=== PATIENT | female | born 1970 | race Caucasian/White ===

== ENCOUNTER 2018-02-07 20:53 | Emergency (ER) | payer OTHER, SELFPAY ==
[2018-02-07 21:04] VITALS: BP 149/93; PULSE 130; RESP 26; TEMP 37.2; O2SAT 99
--- NOTE | 2018-02-07 21:04 | DI.RAD.S_ITS ---
PROCEDURE: XR CHEST 1V INDICATIONS: Chest pain. TECHNIQUE: One view of the chest was acquired. COMPARISON: None. FINDINGS: Surgical changes and devices: None. Lungs and pleura: No pleural effusions or pneumothorax. Lungs are hypoinflated. There is mild prominence of the pulmonary arteries. There are mild perihilar pulmonary opacities favored to represent atelectasis. Mediastinum: Mediastinal contours appear normal. Heart size is normal. Bones and chest wall: No suspicious bony lesions. Overlying soft tissues appear unremarkable. IMPRESSION: Pulmonary hypoinflation with mild perihilar atelectasis. Dictated by: Mariano Thrasher M.D. on 02/08/2018 at 8:16 Approved by: Mariano Thrasher M.D. on 02/08/2018 at 8:19
--- NOTE | 2018-02-07 21:09 | ED.CHESTPAIN ---
HPI - Chest Pain General Chief Complaint: Chest Pain Stated Complaint: Chest Pain Time Seen by Provider: 02/07/18 21:08 Source: patient Mode of arrival: ambulatory Limitations: no limitations History of Present Illness HPI narrative: 47-year-old female here for evaluation of chest pressure radiating down her left arm. She states that it started approximately 1 hr prior to arrival here in the ER. [place] started to not feel very well. She told her that she felt like he needed to go home. They were driving home she decided that she needed to come to the emergency department for evaluation. No prior history of cardiac disease. Does not get worse with palpation or movement or breathing. She does have a history of reflux and is on medicines for this. No family history of early cardiac . Related Data Allergies Allergy/AdvReac Type Severity Reaction Status Date / Time Penicillins Allergy Verified 02/07/18 22:02 Review of Systems Constitutional Denies fever(s) Cardiovascular Reports chest pain, Denies diaphoresis, Denies rapid heart rate, Denies leg edema, Denies lightheadedness, Reports radiating jaw, neck or arm pain, Denies palpitations and Denies dyspnea Respiratory Denies pain on inspiration and Denies dyspnea Gastrointestinal Gastrointestinal: Denies abdominal pain, Denies change in bowel habits, Denies constipation and Reports nausea Musculoskeletal Denies myalgias and Denies arthralgias Integumentary/Breasts Denies lesions and Denies rash Neurologic Denies confusion Psychiatric Denies confusion Endocrine Denies palpitations Hematologic/Lymphatic Denies easy bleeding and Denies easy bruising PFSH Medical History Gastroesophageal reflux disease (Acute) Surgical History No pertinent past surgical history (Acute) Social History marital status: lives independently: Yes Smoking Status: Never smoker Exam Initial Vital Signs Initial Vital Signs: Vital Signs Temperature 99.0 F 02/07/18 21:04 Pulse Rate 130 H 02/07/18 21:04 Respiratory Rate 26 H 02/07/18 21:04 Blood Pressure 149/93 H 02/07/18 21:04 Pulse Oximetry 99 02/07/18 21:04 Const General: healthy appearing, No comfortable (Uncomfortable), well developed and well groomed Orientation: alert, awake and oriented x3 HENMT Head: normal to inspection and normocephalic Resp Effort & Inspection: normal respiratory effort Auscultation: clear to auscultation bilaterally Cardio Rate: tachycardic Rhythm: regular rhythm Heart Sounds: no murmurs Pulses: radial pulses present GI Inspection: non-distended Palpation: soft, No firm and No tender Skin Lesions: no lesions Rashes: no rashes Neuro General: alert, awake and oriented x3 Cognition: normal cognition Speech: speech normal Motor: muscle tone normal throughout Sensory Exam: no sensory deficits noted Extrem General: normal to inspection and capillary refill normal Psych Appearance: grossly normal and well kempt Scores HEART Score Heart Score history: Slightly Suspicious Heart Score EKG: Non-Specific repolarization disturbance Heart Score Age: 45-64 years old Heart Score risk factors: 1-2 risk factors Heart Score troponin: < or = to normal limit Heart Score Total: 3 Course Orders Ordered: ED Orders 02/07/18 21:04 XR chest 1V Stat EKG-12 Lead Stat 02/07/18 21:12 Complete Blood Count AUTO DIFF Stat Comprehensive Metabolic Panel Stat Lipase Stat Partial Thromboplastin Time Stat Prothrombin Time INR Stat Troponin & CK Cardiac Panel Stat 02/07/18 21:20 CT angio chest PE protocol Stat 02/08/18 00:25 Troponin I Stat Discontinued Medications Al Hydrox/Mg Hydrox/Simethicone 20 ml/ Lidocaine HCl 15 ml 0 ml PO NOW ONE Stop: 02/07/18 23:12 Last Admin: 02/07/18 23:12 Dose: 34 ml Morphine Sulfate (Morphine) 4 mg IV NOW ONE Stop: 02/07/18 21:21 Last Admin: 02/07/18 21:39 Dose: 4 mg Ondansetron HCl (Zofran) 4 mg IV NOW ONE Stop: 02/07/18 21:15 Last Admin: 02/07/18 21:15 Dose: 4 mg Vital Signs - 8 hr 02/07/18 21:04 02/07/18 22:57 02/08/18 00:17 Temperature 99.0 F Pulse Rate 130 H 97 H 90 Respiratory Rate 26 H 17 Blood Pressure 149/93 H Blood Pressure [Left Arm] 131/91 H 119/71 Pulse Oximetry 99 97 97 02/08/18 01:19 Temperature Pulse Rate 94 H Respiratory Rate 16 Blood Pressure 123/86 Blood Pressure [Left Arm] Pulse Oximetry 96 MDM - Chest Pain Lab Data Attestation: I reviewed the patient's lab results. Result diagrams: 02/07/18 21:12 02/07/18 21:12 Lab Results 02/07/18 02/07/18 02/07/18 Range/Units 21:12 21:12 21:12 WBC 12.2 H (4.5-11.0) X10^3/uL RBC 5.00 (4.0-5.2) X10^6/uL Hgb 15.1 (12.0-16.0) g/dL Hct 43.9 (36-46) % MCV 87.8 (80-100) fL MCH 30.1 (26-34) PG MCHC 34.3 (30-36) % RDW 13.4 (11.6-14.8) % Plt Count 441 H (150-400) X10^3/uL Neut % (Auto) 58.1 (50-75) % Lymph % (Auto) 31.4 (25-40) % [place] % (Auto) 8.1 (3-14) % Eos % (Auto) 2.1 (2-4) % Baso % (Auto) 0.3 (0-2) % Neut # (Auto) 7100 H (2922-1590) /uL PT 11.0 (10.1-12.7) SECONDS INR 1.0 (0.9-1.3) APTT 32 (26.4-36.2) SECONDS Sodium 144 (137-145) mmol/L Potassium 3.4 (3.4-5.1) mmol/L Chloride 100 (98-107) mmol/L Carbon Dioxide 28 (22-32) mmol/L BUN 11 (7-17) mg/dL Creatinine 0.70 (0.52-1.04) mg/dL Estimated GFR > 60.0 (>60) mL/min BUN/Creatinine Ratio 15.7 (6-22) Glucose 98 (70-100) mg/dL Calcium 10.0 (8.4-10.2) mg/dL Total Bilirubin 0.7 (0.2-1.3) mg/dL AST 39 H (14-36) IU/L ALT 48 (9-52) IU/L Alkaline Phosphatase 62 (38-126) U/L Total Creatine Kinase 88 (30-135) U/L CK-MB (CK-2) TNP CK-MB (CK-2) Rel Index TNP Troponin I < 0.012 (0.01-0.034) ng/mL Total Protein 8.7 H (6.3-8.2) g/dL Albumin 4.8 (3.5-5.0) g/dL Globulin 3.9 (1.7-4.1) g/dL Albumin/Globulin Ratio 1.2 (1.0-2.8) Lipase 52 (23-300) U/L // Range/Units 00:25 WBC (4.5-11.0) X10^3/uL RBC (4.0-5.2) X10^6/uL Hgb (12.0-16.0) g/dL Hct (36-46) % MCV (80-100) fL MCH (26-34) PG MCHC (30-36) % RDW (11.6-14.8) % Plt Count (150-400) X10^3/uL Neut % (Auto) (50-75) % Lymph % (Auto) (25-40) % [place] % (Auto) (3-14) % Eos % (Auto) (2-4) % Baso % (Auto) (0-2) % Neut # (Auto) (8896-0094) /uL PT (10.1-12.7) SECONDS INR (0.9-1.3) APTT (26.4-36.2) SECONDS Sodium (137-145) mmol/L Potassium (3.4-5.1) mmol/L Chloride (98-107) mmol/L Carbon Dioxide (22-32) mmol/L BUN (7-17) mg/dL Creatinine (0.52-1.04) mg/dL Estimated GFR (>60) mL/min BUN/Creatinine Ratio (6-22) Glucose (70-100) mg/dL Calcium (8.4-10.2) mg/dL Total Bilirubin (0.2-1.3) mg/dL AST (14-36) IU/L ALT (9-52) IU/L Alkaline Phosphatase (38-126) U/L Total Creatine Kinase (30-135) U/L CK-MB (CK-2) CK-MB (CK-2) Rel Index Troponin I < 0.012 (0.01-0.034) ng/mL Total Protein (6.3-8.2) g/dL Albumin (3.5-5.0) g/dL Globulin (1.7-4.1) g/dL Albumin/Globulin Ratio (1.0-2.8) Lipase (23-300) U/L Imaging Data Chest x-ray: Attestation: I personally reviewed and interpreted this imaging study as follows: My impression: No focal consolidation No pneumothorax Normal size heart CT scan - chest: Radiologist's impression: No pulmonary embolism ECG Data Attestation: I personally reviewed and interpreted this ECG as follows: Prior ECG tracings: not available for review Interpretation: Sinus tachycardia Ventricular rate of 109 Normal axis Normal intervals Normal QRS Normal QTC Nonspecific ST T wave changes MDM Narrative Medical decision making narrative: During her stay here in the emergency department patient reported improvement of her symptoms. She did state that the GI cocktail did seem to improve her symptoms quite a bit. Tachycardia improved. Nonspecific EKG changes. Troponin negative x2. I had a long discussion with the patient regarding her symptoms and her risk for coronary artery disease. Given her nonspecific EKG changes her heart score and her 2-troponins I feel like her risk is low. I did inform her that she needed to contact her primary care doctor for follow-up and to discuss the indication for stress testing. I do suspect this could be a GI etiology. I did inform the patient of the lack of definitive etiology of her symptoms. Patient expressed understanding and agreement with this plan. Discharge Plan Departure Patient Disposition: Home Clinical Impression: Atypical chest pain Discharge Date/Time: 02/08/18 01:20 Interventions: ED Discharge Assessment Last Done: 02/08/18 01:19 Instructions: DI for Atypical Chest Pain Activity Restrictions/Additional Instructions: Recommend you continue all of your medications. Contact your primary care provider on Saturday to discuss the indications for a stress test. Return to the emergency department for any new or worsening symptoms
[2018-02-07] MEDS: ONDANSETRON 4 MG/2 ML INJ IV (21:15)
--- NOTE | 2018-02-07 21:20 | DI.CT.S_ITS ---
PROCEDURE: CT ANGIO CHEST PE PROTOCOL INDICATIONS: Chest pain, shortness of breath, tachycardia TECHNIQUE: After the administration of intravenous contrast, 2 mm thick sections acquired from the pulmonary apices to the posterior costophrenic angles. 3-dimensional maximum intensity projection (MIP) coronal and sagittal reformats were then acquired through the thorax. For radiation dose reduction, the following was used: automated exposure control, adjustment of mA and/or kV according to patient size. COMPARISON: [facility], CR, XR CHEST 1V, 02/07/2018, 21:41. FINDINGS: Image quality: Excellent. Pulmonary arteries: Pulmonary arteries are normal in size, and demonstrate no intraluminal filling defects to suggest central pulmonary embolism. Lungs and pleura: Scattered bibasilar and bilateral dependent hazy pulmonary opacities suggestive of atelectasis noted, with pulmonary edema thought less likely as there is no septal thickening identified. No pleural effusions or pneumothorax. Central and peripheral airways are patent. Mediastinum: Heart size is normal, without pericardial effusion. No mediastinal or hilar adenopathy. Thoracic aorta is normal in caliber and enhancement. There is mild calcified plaque of the aortic arch and branch vessels. Bones and chest wall: Mild to moderate multilevel degenerative changes of the thoracic spine noted. Ribs and thoracic spine appear intact throughout. Thyroid gland demonstrates a possible 1.6 cm hypoattenuating nodule in the right thyroid lobe, although this is partially obscured by streak artifact. No axillary or supraclavicular adenopathy. Abdomen: Gallbladder surgically absent. Visualized portions of the upper abdominal solid organs appear otherwise normal in the early arterial phase of enhancement. IMPRESSION: #1. No segmental or larger pulmonary emboli. #2. Diffuse bilateral dependent opacities favored to represent atelectasis, with mild pulmonary edema thought less likely. #3. Possible 1.6 cm hypoattenuating right thyroid lobe nodule. Consider outpatient thyroid ultrasound if there is continued clinical concern. This report is concordant with the overnight hourly shift radiology report of Dr. Tyler Crystal. Dictated by: Mariano Thrasher M.D. on 02/08/2018 at 9:46 Approved by: Mariano Thrasher M.D. on 02/08/2018 at 10:08
[2018-02-07] MEDS: MORPHINE 4 MG/ML INJ IV (21:39)
[2018-02-07 21:55] LABS: Add Manual Diff / Slide Review NO; Basophils Percent Auto 0.3 % (0-2); Eosinophils Percent Auto 2.1 % (2-4); Hematocrit 43.9 % (36-46); Hemoglobin 15.1 g/dL (12.0-16.0); Lymphocytes Percent Auto 31.4 % (25-40); Mean Corpuscular HGB Conc 34.3 % (30-36); Mean Corpuscular Hemoglobin 30.1 PG (26-34); Mean Corpuscular Volume 87.8 fL (80-100); Monocytes Percent Auto 8.1 % (3-14); Neutrophils Absolute Auto 7100 /uL (1500-7000); Neutrophils Percent Auto 58.1 % (50-75); Platelet Count 441 X10^3/uL (150-400); Red Cell Distribution Width 13.4 % (11.6-14.8); White Blood Cell Count 12.2 X10^3/uL (4.5-11.0)
[2018-02-07 22:03] LABS: PTT Partial Thromboplastin Tim 32 SECONDS (26.4-36.2)
[2018-02-07 22:06] LABS: Alanine Aminotransferase 48 IU/L (9-52); Albumin 4.8 g/dL (3.5-5.0); Albumin Globulin Ratio 1.2 (1.0-2.8); Alkaline Phosphatase 62 U/L (38-126); Aspartate Aminotransferase 39 IU/L (14-36); BUN Creatinine Ratio 15.7 (6-22); Bilirubin Total 0.7 mg/dL (0.2-1.3); Blood Urea Nitrogen 11 mg/dL (7-17); Carbon Dioxide 28 mmol/L (22-32); Chloride 100 mmol/L (98-107); Creatine Kinase 88 U/L (30-135); Estimated Glomerular Filt Rate > 60.0 mL/min (>60); Globulin 3.9 g/dL (1.7-4.1); Glucose 98 mg/dL (70-100); HEMOLYSIS 36 (0-50); Lipase 52 U/L (23-300); Potassium 3.4 mmol/L (3.4-5.1); Sodium 144 mmol/L (137-145); Total Protein 8.7 g/dL (6.3-8.2)
[2018-02-07 22:18] LABS: Troponin I < 0.012 ng/mL (0.01-0.034)
[2018-02-07 22:57] VITALS: BP 131/91; PULSE 97; RESP 17; O2SAT 97
[2018-02-07] MEDS: MAG HYDROX/ALUMINUM/SIMETH SUS 20 ML, LIDOCAINE VISCOUS 2% 15 ML PO (23:12)
[2018-02-08 00:17] VITALS: BP 119/71; PULSE 90; O2SAT 97
[2018-02-08 01:00] LABS: Troponin I < 0.012 ng/mL (0.01-0.034)
[2018-02-08 01:19] VITALS: BP 123/86; PULSE 94; RESP 16; O2SAT 96
== END 2018-02-08 01:20 | disposition home or self-care (01) ==
PROVIDERS: Emergency Provider Emergency Medicine
DX: R07.89 Other chest pain (principal)
CPT/HCPCS: 36415; 36591; 71045; 71275; 80053; 82550; 83690; 84484; 85025; 85610; 85730; 93005; 93010; 93041; 96374; 96375; 99283; 99285; J2270; J2405; Q9967

== ENCOUNTER 2022-05-31 17:53 | Observation (INO) | payer OTHER, SELFPAY ==
[2022-05-31] VITALS (15 sets, daily range): BP systolic 101–139; BP diastolic 53–80; PULSE 81–100; RESP 14–24; TEMP 36.9; O2SAT 91–97; BMI 43.9
--- NOTE | 2022-05-31 18:03 | DI.RAD.S_ITS ---
PROCEDURE: XR CHEST 1V INDICATIONS: chest pain TECHNIQUE: One view of the chest was acquired. COMPARISON: [facility], CR, XR CHEST 1V, 02/07/2018, 21:41. FINDINGS: Surgical changes and devices: None. Lungs and pleura: Lungs are clear. No pleural effusions or pneumothorax. Mediastinum: Mediastinal contours appear normal. Heart size is normal. Bones and chest wall: No suspicious bony lesions. Overlying soft tissues appear unremarkable. IMPRESSION: Stable radiographic evaluation of the chest without acute cardiopulmonary abnormalities or focal airspace disease. Dictated by: Charles Kerr M.D. on 05/31/2022 at 19:23 Approved by: Charles Kerr M.D. on 05/31/2022 at 19:23
[2022-05-31 18:41] LABS: Add Manual Diff / Slide Review NO; Basophils Absolute Auto 100 /uL (0-100); Basophils Percent Auto 0.8 % (0-2); Eosinophils Absolute Auto 300 /uL (0-450); Eosinophils Percent Auto 2.1 % (2-4); Hemoglobin 14.2 g/dL (12.0-16.0); INR 0.9 (0.9-1.3); Lymphocytes Absolute Auto 3300 /uL (1100-4500); Mean Corpuscular HGB Conc 34.5 % (30-36); Mean Corpuscular Hemoglobin 29.8 PG (26-34); Mean Corpuscular Volume 86.2 fL (80-100); Monocytes Absolute Auto 1000 /uL (0-900); Monocytes Percent Auto 8.4 % (3-14); Neutrophils Absolute Auto 7500 /uL (1500-7000); Neutrophils Percent Auto 61.7 % (50-75); Platelet Count 406 X10^3/uL (150-400); Prothrombin Time 10.7 SECONDS (10.1-12.7); Red Blood Cell Count 4.76 X10^6/uL (4.0-5.2); Red Cell Distribution Width 13.5 % (11.6-14.8); White Blood Cell Count 12.2 X10^3/uL (4.5-11.0)
[2022-05-31 18:44] LABS: PTT Partial Thromboplastin Tim 31 SECONDS (26-36)
[2022-05-31 18:45] LABS: D Dimer 333 ng/ml (<500)
[2022-05-31 18:46] LABS: Alanine Aminotransferase 47 IU/L (<35); Albumin 4.3 g/dL (3.5-5.0); Albumin Globulin Ratio 1.1 (1.0-2.8); Alkaline Phosphatase 75 U/L (38-126); Aspartate Aminotransferase 41 IU/L (14-36); Bilirubin Total 0.5 mg/dL (0.2-1.3); Blood Urea Nitrogen 12 mg/dL (7-17); Carbon Dioxide 30 mmol/L (22-32); Chloride 98 mmol/L (98-107); Creatine Kinase 96 U/L (30-135); Estimated Glomerular Filt Rate > 60 mL/min (>60); Globulin 3.9 g/dL (1.7-4.1); Glucose 90 mg/dL (70-100); HEMOLYSIS < 15 (0-50); Lipase 79 U/L (23-300); Potassium 3.3 mmol/L (3.4-5.1); Sodium 138 mmol/L (137-145); Total Protein 8.2 g/dL (6.3-8.2)
--- NOTE | 2022-05-31 18:53 | ED_ITS ---
HPI - Arrhythmia/Palpitations General Chief Complaint: Arrhythmia/Palpitations Stated Complaint: rapid heartbeat, chest pain Time Seen by Provider: 05/31/22 18:09 History of Present Illness HPI narrative: 52-year-old woman with a history of reflux, hyperlipidemia, intermittent left leg edema for which she takes hydrochlorothiazide presents complaining of 2 weeks of severeFatigue getting worse over the last week and today between 2 and 4:00 p.m. she noticed a rapid heart rate. She did have a pulse ox at home and noted heart rate into the 125 range with saturations in the 92% range without a sensation of dyspnea. She describes no recent fevers, cough, chills. She notes she has seasonal allergies that have been causing some irritation to the back of her throat. She is concerned that it was anxiety and tried Xanax which was ineffective. She tried famotidine which was ineffective. She notes that she has a sensation of heaviness over the left side of her chest radiating up into the left jaw sometimes under the left breast and is significantly minimizing symptoms overall. She does not describe obvious exertional dyspnea however over the last week she notes that she is significantly more fatigued when going up stairs or walking fast to keep up with friends. No nausea, vomiting, abdominal pain Related Data Allergies Allergy/AdvReac Type Severity Reaction Status Date / Time Penicillins Allergy Verified 02/07/18 22:02 Review of Systems Review of Systems Narrative: Pertinent positive and negative findings as per HPI Patient History Medical History Gastroesophageal reflux disease Surgical History No pertinent past surgical history Social History marital status: lives independently: Yes Smoking Status: Never smoker Smoking Status: Never smoker alcohol intake frequency: 0-2 drinks per day Substance Use Type: does not use Exam Initial Vital Signs Initial Vital Signs: Vital Signs Temperature 98.4 F 05/31/22 18:04 Pulse Rate 96 H 05/31/22 18:04 Respiratory Rate 16 05/31/22 18:04 Blood Pressure 139/78 05/31/22 18:04 Pulse Oximetry 96 05/31/22 18:04 Oxygen Delivery Method Room Air 05/31/22 18:04 General: Healthy appearing, in no acute distress. Able to give a complete and coherent history. Well-nourished well-developed HEENT: Moist mucous membranes, normal sclera with reactive pupils, Neck: No JVD, supple Respiratory: Lungs are clear to auscultation, no wheezing no rales no rhonchi. Full and symmetrical air movement Cardiac: Regular rate and rhythm no murmurs no bruits Abdomen: Soft, nontender, good bowel tones, no flank pain Skin: Warm and dry, no rashes Neurologic: Grossly neurologically intact with no obvious asymmetries or abno rmalities Extremities: No trauma, well perfused Psych: Cooperative, appropriate insight and affect Course Orders Ordered: ED Orders 05/31/22 18:03 XR chest 1V Stat 05/31/22 18:06 EKG-12 Lead Stat 05/31/22 18:26 Complete Blood Count AUTO DIFF Stat Comprehensive Metabolic Panel Stat D Dimer Stat Lipase Stat Magnesium Stat NT-proBNP (BNP-Adult 18+) Urgent PTT Partial Thromboplastin Kristofer Stat Prothrombin Time INR Stat Troponin & CK Cardiac Panel Stat 05/31/22 18:35 COVID19 -Nasal RAPID Stat 05/31/22 20:30 Trop I [Troponin I] Stat EKG-12 Lead Stat 05/31/22 21:18 EC echo doppler complete Urgent NM nahed perf SPECT rest & str Urgent 05/31/22 21:19 Education, smoking cessation ONGOING 05/31/22 21:23 Consult to Dietitian, Adult Routine 05/31/22 21:24 Consult to Occupational Therapy Evaluate & Treat Consult to Physical Therapy Evaluate & Treat Urine Culture Stat 06/01/22 05:00 Basic Metabolic Panel Routine Complete Blood Count AUTO DIFF Routine Lipid Panel Routine Troponin I Routine Acetaminophen (Acetaminophen 325 Mg Tablet) 650 mg PO Q6H PRN PRN Reason: Fever/Mild Pain (1-3) Aspirin (Aspirin Ec 81 Mg Tablet) 81 mg PO DAILY SHANON Enoxaparin Sodium (Enoxaparin 40 Mg/0.4 Ml Syringe) 40 mg SUBCUT DAILY SHANON Morphine Sulfate (Morphine 2 Mg/Ml Inj) 2 mg IV Q5MIN PRN PRN Reason: Chest Pain Naloxone HCl (Naloxone 0.4 Mg/Ml Vial) 0.2 mg IV Q2MIN PRN PRN Reason: Opiate Reversal Nitroglycerin (Nitroglycerin 0.4 Mg Sl Tab) 0.4 mg SL [id number] PRN PRN Reason: Chest Pain Ondansetron HCl (Ondansetron 4 Mg/2 Ml Inj) 4 mg IV Q8HR PRN PRN Reason: Nausea And Vomiting Discontinued Medications Acetaminophen (Acetaminophen 325 Mg Tablet) 975 mg PO NOW ONE Stop: 05/31/22 19:53 Last Admin: 05/31/22 20:06 Dose: 975 mg Documented By: IRINEO Nitroglycerin (Nitroglycerin 0.4 Mg Sl Tab) 0.4 mg SL NOW ONE Stop: 05/31/22 19:53 Last Admin: 05/31/22 20:06 Dose: 0.4 mg Documented By: IRINEO Potassium Chloride (Potassium Chloride 20 Meq Tab) 40 meq PO NOW ONE Stop: 05/31/22 21:24 Last Admin: 05/31/22 22:11 Dose: 40 meq Documented By: IRINEO Vital Signs Vital signs: Vital Signs - 8 hr 05/31/22 18:21 05/31/22 18:30 05/31/22 19:00 Pulse Rate 95 H 92 H 92 H Respiratory Rate 23 16 Blood Pressure Pulse Oximetry 96 96 95 05/31/22 19:30 05/31/22 19:46 05/31/22 19:46 Pulse Rate 92 H 86 Respiratory Rate 15 20 Blood Pressure 138/80 Pulse Oximetry 96 97 05/31/22 20:00 05/31/22 20:30 05/31/22 20:56 Pulse Rate 88 90 Respiratory Rate 20 20 Blood Pressure 121/60 Pulse Oximetry 97 96 05/31/22 20:56 05/31/22 21:00 05/31/22 21:00 Pulse Rate 100 H 87 Respiratory Rate 14 20 Blood Pressure 112/59 L Pulse Oximetry 95 95 05/31/22 21:30 05/31/22 21:30 05/31/22 22:00 Pulse Rate 90 Respiratory Rate 15 Blood Pressure 111/60 101/55 L Pulse Oximetry 95 05/31/22 22:00 05/31/22 22:24 05/31/22 22:24 Pulse Rate 86 81 Respiratory Rate 21 22 Blood Pressure 105/55 L Pulse Oximetry 94 95 05/31/22 22:30 05/31/22 22:30 05/31/22 23:00 Pulse Rate 86 Respiratory Rate 24 Blood Pressure 102/53 L 110/55 L Pulse Oximetry 95 05/31/22 23:00 Pulse Rate 85 Respiratory Rate 20 Blood Pressure Pulse Oximetry 91 MDM - Arrhythmia/Palpitations Lab Data 05/31/22 18:26 05/31/22 18:26 Labs: Lab Results 05/31/22 05/31/22 05/31/22 Range/Units 18:26 18:26 18:26 WBC 12.2 H (4.5-11.0) X10^3/uL RBC 4.76 (4.0-5.2) X10^6/uL Hgb 14.2 (12.0-16.0) g/dL Hct 41.0 (36-46) % MCV 86.2 (80-100) fL MCH 29.8 (26-34) PG MCHC 34.5 (30-36) % RDW 13.5 (11.6-14.8) % Plt Count 406 H (150-400) X10^3/uL Neut % (Auto) 61.7 (50-75) % Lymph % (Auto) 27.0 (25-40) % [place] % (Auto) 8.4 (3-14) % Eos % (Auto) 2.1 (2-4) % Baso % (Auto) 0.8 (0-2) % Neut # (Auto) 7500 H (2449-7585) /uL Lymph # (Auto) 3300 (6065-5540) /uL [place] # (Auto) 1000 H (0-900) /uL Eos # (Auto) 300 (0-450) /uL Baso # (Auto) 100 (0-100) /uL PT 10.7 (10.1-12.7) SECONDS INR 0.9 (0.9-1.3) APTT 31 (26-36) SECONDS D-Dimer (<500) ng/ml Sodium 138 (137-145) mmol/L Potassium 3.3 L (3.4-5.1) mmol/L Chloride 98 (98-107) mmol/L Carbon Dioxide 30 (22-32) mmol/L BUN 12 (7-17) mg/dL Creatinine 0.63 (0.52-1.04) mg/dL Estimated GFR > 60 (>60) mL/min BUN/Creatinine Ratio 19.0 (6-22) Glucose 90 (70-100) mg/dL Calcium 9.0 (8.4-10.2) mg/dL Magnesium 2.0 (1.6-2.3) mg/dL Total Bilirubin 0.5 (0.2-1.3) mg/dL AST 41 H (14-36) IU/L ALT 47 H (<35) IU/L Alkaline Phosphatase 75 (38-126) U/L Total Creatine Kinase 96 (30-135) U/L CK-MB (CK-2) TNP CK-MB (CK-2) Rel Index TNP Troponin I < 0.012 (0.01-0.034) ng/mL NT-Pro-B Natriuret Pep (<125) pg/mL Total Protein 8.2 (6.3-8.2) g/dL Albumin 4.3 (3.5-5.0) g/dL Globulin 3.9 (1.7-4.1) g/dL Albumin/Globulin Ratio 1.1 (1.0-2.8) Lipase 79 (23-300) U/L SARS-CoV-2 (PCR) (Negative) 05/31/22 05/31/22 05/31/22 Range/Units 18:26 18:26 18:35 WBC (4.5-11.0) X10^3/uL RBC (4.0-5.2) X10^6/uL Hgb (12.0-16.0) g/dL Hct (36-46) % MCV (80-100) fL MCH (26-34) PG MCHC (30-36) % RDW (11.6-14.8) % Plt Count (150-400) X10^3/uL Neut % (Auto) (50-75) % Lymph % (Auto) (25-40) % [place] % (Auto) (3-14) % Eos % (Auto) (2-4) % Baso % (Auto) (0-2) % Neut # (Auto) (0023-0574) /uL Lymph # (Auto) (6970-8846) /uL [place] # (Auto) (0-900) /uL Eos # (Auto) (0-450) /uL Baso # (Auto) (0-100) /uL PT (10.1-12.7) SECONDS INR (0.9-1.3) APTT (26-36) SECONDS D-Dimer 333 (<500) ng/ml Sodium (137-145) mmol/L Potassium (3.4-5.1) mmol/L Chloride (98-107) mmol/L Carbon Dioxide (22-32) mmol/L BUN (7-17) mg/dL Creatinine (0.52-1.04) mg/dL Estimated GFR (>60) mL/min BUN/Creatinine Ratio (6-22) Glucose (70-100) mg/dL Calcium (8.4-10.2) mg/dL Magnesium (1.6-2.3) mg/dL Total Bilirubin (0.2-1.3) mg/dL AST (14-36) IU/L ALT (<35) IU/L Alkaline Phosphatase (38-126) U/L Total Creatine Kinase (30-135) U/L CK-MB (CK-2) CK-MB (CK-2) Rel Index Troponin I (0.01-0.034) ng/mL NT-Pro-B Natriuret Pep < 11 (<125) pg/mL Total Protein (6.3-8.2) g/dL Albumin (3.5-5.0) g/dL Globulin (1.7-4.1) g/dL Albumin/Globulin Ratio (1.0-2.8) Lipase (23-300) U/L SARS-CoV-2 (PCR) Negative (Negative) 05/31/22 Range/Units 20:30 WBC (4.5-11.0) X10^3/uL RBC (4.0-5.2) X10^6/uL Hgb (12.0-16.0) g/dL Hct (36-46) % MCV (80-100) fL MCH (26-34) PG MCHC (30-36) % RDW (11.6-14.8) % Plt Count (150-400) X10^3/uL Neut % (Auto) (50-75) % Lymph % (Auto) (25-40) % [place] % (Auto) (3-14) % Eos % (Auto) (2-4) % Baso % (Auto) (0-2) % Neut # (Auto) (6743-1786) /uL Lymph # (Auto) (7654-5630) /uL [place] # (Auto) (0-900) /uL Eos # (Auto) (0-450) /uL Baso # (Auto) (0-100) /uL PT (10.1-12.7) SECONDS INR (0.9-1.3) APTT (26-36) SECONDS D-Dimer (<500) ng/ml Sodium (137-145) mmol/L Potassium (3.4-5.1) mmol/L Chloride (98-107) mmol/L Carbon Dioxide (22-32) mmol/L BUN (7-17) mg/dL Creatinine (0.52-1.04) mg/dL Estimated GFR (>60) mL/min BUN/Creatinine Ratio (6-22) Glucose (70-100) mg/dL Calcium (8.4-10.2) mg/dL Magnesium (1.6-2.3) mg/dL Total Bilirubin (0.2-1.3) mg/dL AST (14-36) IU/L ALT (<35) IU/L Alkaline Phosphatase (38-126) U/L Total Creatine Kinase (30-135) U/L CK-MB (CK-2) CK-MB (CK-2) Rel Index Troponin I < 0.012 (0.01-0.034) ng/mL NT-Pro-B Natriuret Pep (<125) pg/mL Total Protein (6.3-8.2) g/dL Albumin (3.5-5.0) g/dL Globulin (1.7-4.1) g/dL Albumin/Globulin Ratio (1.0-2.8) Lipase (23-300) U/L SARS-CoV-2 (PCR) (Negative) MDM Narrative Medical decision making narrative: CC: Chest pain acute onset, new problem with uncertain prognosis Complicating co-morbidities: hypertension, hyperlipidemia, reflux Data collected from: patient, Social determinants of health that may influence the patients condition: strong propensity to minimize her symptoms Medical records reviewed: ER notes from 2018 are reviewed Differential considered: acute coronary syndrome, musculoskeletal chest pain, reflux, gastritis, viral syndrome, pneumothorax, pneumonia Exam documented above, pertinent findings include: benign exam. Lab Test results independently reviewed as above. Pertinent findings: Cbc shows no significant leukocytosis or anemia chemistries show mild hypokalemia with potassium at 3.3, mild AST ALT elevation initial troponin is unremarkable as is repeat 2 hours later Independently reviewed EKG sinus rhythm with nonspecific ST T wave changes, no acute ischemia Imaging studies independently reviewed: chest x-ray demonstrates no acute cardiopulmonary disease Discussion: 52-year-old woman with chest pain that has responded nicely to a single dose of nitroglycerin, onset at rest this evening associated with nausea and mild diaphoresis. Multiple risk factors for cardiac disease with no prior cardiac disease diagnoses. Heart score is 5 which puts her at high risk for 30 day major adverse coronary event risk and hospitalization is recommended. This is reviewed with the patient who is amenable to hospitalization. Reviewed with admitting hospitalist Service. Discharge Plan Departure Patient Disposition: Admitted as Observation Clinical Impression: Chest pain at rest Admit Date/Time: 05/31/22 23:47 Admit Provider: Cherrie Cruz
[2022-05-31 18:54] LABS: COVID19 -Nasal RAPID Negative (Negative)
[2022-05-31 18:57] LABS: Troponin I < 0.012 ng/mL (0.01-0.034)
[2022-05-31] MEDS: ACETAMINOPHEN 325 MG TABLET 975 MG PO (20:06)
[2022-05-31] MEDS: NITROGLYCERIN 0.4 MG SL TAB SL (20:06)
[2022-05-31 21:02] LABS: Troponin I < 0.012 ng/mL (0.01-0.034)
--- NOTE | 2022-05-31 21:25 | P.HP_ITS ---
History of Present Illness History of Present Illness Date Patient Seen: 05/31/22 Time Patient Seen: 21:26 Chief complaint: rapid heartbeat, chest pain Narrative: Hilaria Helm 52-year-old woman with a history of reflux, hyperlipidemia, intermittent left leg edema for which she takes hydrochlorothiazide presents complaining of 2 weeks of severe Fatigue getting worse over the last week and today rapid heart rate, nausea and diaphoresis. She noted sensation of heaviness over the left side of her chest radiating up into the left jaw sometimes under the left breast and is significantly minimizing symptoms overall.? She did describe obvious exertional dyspnea, worsening over the last week with significantly more fatigued when going up stairs or walking fast.?In ED responded nicely to a single dose of nitroglycerin-Heart score is? 5 which puts her at high risk for 30 day major adverse coronary event risk. At the time of admit exam patient is resting comfortably in bed boarding in the ED, only notes that she is feels hot and sweaty, but denies further chest pain, shortness in breath, headache, changes in vision, difficulty swallowing, speech impairment, weakness, numbness, tingling, difficulty with ambulation, recent falls, head injury, LOC, fever, body aches, chills, cough, recent exposure to illness, abdominal pain, nausea, vomiting, urinary incontinence/retention, dysuria, frequency, urgency, hematuria, bowel changes, constipation, incontinen ce, melena, rashes, recent changes to medication, illness, injury, or trauma. Her vitals are stable temp 98.4? BP 139/78, HR 92, RR 19, O2 saturation 96% on room air. WBC 12.2 neutrophils 7500, mono 1000, platelets 406, mild hypokalemia K 3.3, AST 41, ALT 47, troponin x2 negative, COVID negative, dimer negative, chest x-ray negative, EKG sinus rhythm without ST or T-wave changes. Patient admitted for chest pain at rest. ? [facility] Medical History (Updated 06/01/22 @ 03:50 by JAKOB Hannah) Gastroesophageal reflux disease Surgical History History of hysterectomy No pertinent past surgical history Family History Father No problems noted. Mother No problems noted. Social History marital status: lives independently: Yes Smoking Status: Never smoker Meds Home Medications and Allergies Allergies Allergy/AdvReac Type Severity Reaction Status Date / Time Penicillins Allergy Verified 02/07/18 22:02 Review of Systems Review of Systems Narrative: All 12 point systems reviewed with the patient and are negative except otherwise documented. Exam Vital Signs (past 8 hours): - 05/31/22 18:04 05/31/22 18:21 05/31/22 18:30 Temperature 98.4 F Pulse Rate 96 H 95 H 92 H Respiratory Rate 16 23 Blood Pressure 139/78 Pulse Oximetry 96 96 96 Oxygen Delivery Method Room Air Oxygen Delivery Method Room Air Narrative Exam Narrative: General: Patient is a well-developed, well-nourished in no distress at this time. HEENT: Normocephalic, atraumatic, extraocular muscles intact, oral pharynx is clear and mucous membranes are moist. Neck is supple and symmetric, trachea is midline, no adenopathy, no thyroid enlargement, nontender, no masses palpated. Negative for JVD Chest: Normal AP diameter and contour without kyphoscoliosis, no nasal flaring, retractions, or tachypneic labored Lungs: Auscultation of all lung [place] are clear without adventitious sounds, wheezes, rhonchi, or rales. Cardio: S1 & S2 with regular rate and rhythm without murmur, rubs, or gallops, no carotid bruit, no cardiac pulsations present. Abdomen: Soft nontender, negative for organomegaly, or masses. Bowel sounds are present in all 4 quadrants without guarding or rebound, no CVA tenderness. Musculoskeletal: Muscle strength and tone are equal within normal limits, no deformity, crepitus, effusions, cyanosis, clubbing or edema present. Full range of motion intact radial and pedal pulses are normal. Skin: Warm dry and intact without rashes, ulcerations or petechiae. Neuro: Alert and orientated x3, strength is +5/5 in all extremities, sensation to touch intact, no gross deficits noted of cranial nerves. Psych: Patient has a well-kept appearance, appropriate affect, mental status attitude thought context and judgment are appropriate for age. Objective Labs 05/31/22 18:26 05/31/22 18:26 Labs: Laboratory Results - last 24 hr 05/31/22 05/31/22 05/31/22 18:26 18:26 18:26 WBC 12.2 H RBC 4.76 Hgb 14.2 Hct 41.0 MCV 86.2 MCH 29.8 MCHC 34.5 RDW 13.5 Plt Count 406 H Neut % (Auto) 61.7 Lymph % (Auto) 27.0 [place] % (Auto) 8.4 Eos % (Auto) 2.1 Baso % (Auto) 0.8 Neut # (Auto) 7500 H Lymph # (Auto) 3300 [place] # (Auto) 1000 H Eos # (Auto) 300 Baso # (Auto) 100 PT 10.7 INR 0.9 APTT 31 D-Dimer Sodium 138 Potassium 3.3 L Chloride 98 Carbon Dioxide 30 BUN 12 Creatinine 0.63 Estimated GFR > 60 BUN/Creatinine Ratio 19.0 Glucose 90 Calcium 9.0 Magnesium 2.0 Total Bilirubin 0.5 AST 41 H ALT 47 H Alkaline Phosphatase 75 Total Creatine Kinase 96 CK-MB (CK-2) TNP CK-MB (CK-2) Rel Index TNP Troponin I < 0.012 Total Protein 8.2 Albumin 4.3 Globulin 3.9 Albumin/Globulin Ratio 1.1 Lipase 79 SARS-CoV-2 (PCR) 05/31/22 05/31/22 05/31/22 18:26 18:35 20:30 WBC RBC Hgb Hct MCV MCH MCHC RDW Plt Count Neut % (Auto) Lymph % (Auto) [place] % (Auto) Eos % (Auto) Baso % (Auto) Neut # (Auto) Lymph # (Auto) [place] # (Auto) Eos # (Auto) Baso # (Auto) PT INR APTT D-Dimer 333 Sodium Potassium Chloride Carbon Dioxide BUN Creatinine Estimated GFR BUN/Creatinine Ratio Glucose Calcium Magnesium Total Bilirubin AST ALT Alkaline Phosphatase Total Creatine Kinase CK-MB (CK-2) CK-MB (CK-2) Rel Index Troponin I < 0.012 Total Protein Albumin Globulin Albumin/Globulin Ratio Lipase SARS-CoV-2 (PCR) Negative Assessment & Plan Assessment & Plan narrative: Hilaria Helm 52-year-old woman with a history of reflux, hyperlipidemia, intermittent left leg edema presents complaining of 2 weeks of severe Fatigue, rapid heart rate, nausea and diaphoresis with radiating left-sided chest heaviness. Patient admitted for chest pain at rest-trend troponins, echo and stress tomorrow. 1. Chest pain at rest, acute, present on admission-resolved -Heart score is? 5 which puts her at high risk for 30 day major adverse coronary event risk. -On tele -continue to trend troponins, initial troponin x2 negative, BNP neg, dimer neg, EKG neg. -Lipids ordered -echo and stress test (exercise) ordered for tomorrow -ASA -CP protocol 2. GERD, chronic, present on admission -Protonix for patient's Prevacid 3. Hypokalemia, mild, present on admission -potassium 3.3 -40 mEq p.o. given 4. Obesity, moderate, acute on chronic, present on admission -BMI 45.8 -dietary consult ordered regarding nutritional education and information for dietary, lifestyle, exercise, and weight changes. -the patient is at much higher risk for medical and surgical complications due to obesity as it relates to chronic illnesses:, and acute illness. The patient's obesity increases the difficulty and complexity of medical and/or surgical interventions, management and increases the chances of poor outcome such as morbidity and mortality as well as impaired wound healing. Code status:Full Surrogate decision maker: Dorethatracy spouse COVID PCR: Negative DVT/VTE prophylaxis: Lovenox and SCDs Disposition: Patient admitted for observation chest pain rule out, expected length of stay less than 2 midnights. I have utilized all available immediate resources to obtain, update, or review the patient's current medications. I confirmed that the patient's advanced care plan is present, Code status is documented and/or surrogate decision maker is listed in the patient's medical record. I have personally reviewed patient's chart notes from PCP, specialists, diagnostic imaging, and laboratory results.
[2022-05-31 21:46] LABS: NT-proBNP (BNP-Adult 18+) < 11 pg/mL (<125)
[2022-05-31] MEDS: POTASSIUM CHLORIDE 20 MEQ TAB 40 MEQ PO (22:11)
[2022-06-01] VITALS (8 sets, daily range): BP systolic 98–119; BP diastolic 48–73; PULSE 80–101; RESP 16–21; TEMP 36.1–36.3; O2SAT 91–97; BMI 43.9
[2022-06-01] MEDS: NITROGLYCERIN 0.4 MG SL TAB SL (03:13)
[2022-06-01 07:13] LABS: Add Manual Diff / Slide Review NO; Basophils Absolute Auto 0 /uL (0-100); Basophils Percent Auto 0.3 % (0-2); Eosinophils Absolute Auto 200 /uL (0-450); Eosinophils Percent Auto 3.1 % (2-4); Hematocrit 39.5 % (36-46); Hemoglobin 13.6 g/dL (12.0-16.0); Lymphocytes Absolute Auto 2800 /uL (1100-4500); Lymphocytes Percent Auto 36.9 % (25-40); Mean Corpuscular HGB Conc 34.3 % (30-36); Mean Corpuscular Volume 87.3 fL (80-100); Monocytes Absolute Auto 700 /uL (0-900); Monocytes Percent Auto 8.6 % (3-14); Neutrophils Absolute Auto 3900 /uL (1500-7000); Neutrophils Percent Auto 51.1 % (50-75); Platelet Count 368 X10^3/uL (150-400); Red Blood Cell Count 4.53 X10^6/uL (4.0-5.2); Red Cell Distribution Width 13.6 % (11.6-14.8); White Blood Cell Count 7.6 X10^3/uL (4.5-11.0)
[2022-06-01 07:17] LABS: BUN Creatinine Ratio 20.6 (6-22); Blood Urea Nitrogen 13 mg/dL (7-17); Calcium 8.5 mg/dL (8.4-10.2); Carbon Dioxide 30 mmol/L (22-32); Chloride 100 mmol/L (98-107); Cholesterol 189 mg/dL (140-199); Estimated Glomerular Filt Rate > 60 mL/min (>60); Glucose 95 mg/dL (70-100); HDL Cholesterol 42 mg/dL (40-60); HEMOLYSIS < 15 (0-50); LDL Cholesterol Calculated 116 mg/dL (<100); Potassium 3.7 mmol/L (3.4-5.1); Sodium 137 mmol/L (137-145); Triglycerides 153 mg/dL (35-150)
[2022-06-01 07:28] LABS: Troponin I < 0.012 ng/mL (0.01-0.034)
[2022-06-01] MEDS: ASPIRIN EC 81 MG TABLET PO (08:24)
[2022-06-01] MEDS: PANTOPRAZOLE DR 20 MG TABLET PO (08:24)
[2022-06-01] MEDS: ENOXAPARIN 40 MG/0.4 ML SYRINGE SUBCUT (08:24)
--- NOTE | 2022-06-01 10:16 | PT-IP ANOTE ---
Per rounds pt no longer appropriate for PT and will be discharging PT order.
--- NOTE | 2022-06-01 10:52 | OT.IPNOTE ---
Per hospitalist during rounds, okay to discharge therapy orders as not needed. Pt also states has been independent in the room.
--- NOTE | 2022-06-01 11:03 | DIET.CONS ---
Dietary Consultation Note Admission Date: 05/31/2022 23:47 Assessment: RD consulted for BMI of 43.9. Rec OP MNT prn. Ht: 157.48 cm Wt: 113.5 kg BMI: 43.9 Electronically Signed by: Joanie Lora 06/01/22 11:03 Clinical Dietitian [address] [address]
--- NOTE | 2022-06-01 14:42 | DIET.CONS ---
Dietary Consultation Note Admission Date: 05/31/2022 23:47 Assessment: RD consulted for BMI. Rec OP nutrition therapy prn. Ht: 157.48 cm Wt: 113.5 kg BMI: 43.9 UBW: Last BM: () MNA: 14 Zain Score: 21 Diet: 05/31/22 Breakfast Heart Healthy Diet Diet Modifications: Sodium Level: 2 gm Sodium Electronically Signed by: Joanie Lora 06/01/22 14:42 Clinical Dietitian [address] [address]
--- NOTE | 2022-06-01 15:06 | CM.DANOTE ---
Discharge Planning/Care Management CM Discharge Assessment Start: 06/01/22 15:02 Freq: Status: Active Protocol: Document 06/01/22 15:02 NATHALIE (Rec: 06/01/22 15:06 NATHALIE [id number]) Discharge Planning Assessment Assigned Committee Member CB Jamil DPOA/Assigned Designee Name Carlos Helm, spouse Contact Information [phone] Advance Directives? No History Provided By Patient,Medical Record Prior Living Arrangements House Household Members spouse Type of transporation used prior to Drives own vehicle admit Comment Works at [employer] Independent with ADL's Yes Is patient alert and oriented? Yes Barriers to Discharge No Comment Patient is a 52 yo female, resident of [place], presents w/cp and admitted for r/o -echo and stress test pending today Patient expected to discharge after ordered tests and will return home w/spouse and close outpatient follow recommendation Discharge Plan Home Transportation Arrangement Spouse Referrals Initiated None needed
--- NOTE | 2022-06-01 17:12 | PM.DS.1 ---
History of Present Illness History of Present Illness Chief complaint: rapid heartbeat, chest pain Narrative: Per history and physical: Hilaria Helm 52-year-old woman with a history of reflux, hyperlipidemia, intermittent left leg edema for which she takes hydrochlorothiazide presents complaining of 2 weeks of severe Fatigue getting worse over the last week and today rapid heart rate, nausea and diaphoresis. She noted sensation of heaviness over the left side of her chest radiating up into the left jaw sometimes under the left breast and is significantly minimizing symptoms overall.? She did describe obvious exertional dyspnea, worsening over the last week? with significantly more fatigued when going up stairs or walking fast.?In ED responded nicely to a single dose of nitroglycerin-Heart score is? 5 which puts her at high risk for 30 day major adverse coronary event risk. At the time of admit exam patient is resting comfortably in bed boarding in the ED, only notes that she is feels hot and sweaty, but denies further chest pain, shortness in breath, headache, changes in vision, difficulty swallowing, speech impairment, weakness, numbness, tingling, difficulty with ambulation, recent falls, head injury, LOC, fever, body aches, chills, cough, recent exposure to illness, abdominal pain, nausea, vomiting, urinary incontinence/retention, dysuria, frequency, urgency, hematuria, bowel changes, constipation, incontinence, melena, rashes, recent changes to medication, illness, injury, or trauma. Her vitals are stable temp 98.4? BP 139/78, HR 92, RR 19, O2 saturation 96% on room air.? WBC 12.2 neutrophils 7500, mono 1000, platelets 406, mild hypokalemia K 3.3, AST 41, ALT 47, troponin x2 negative, COVID negative, dimer negative, chest x-ray negative, EKG sinus rhythm without ST or T-wave changes.? Patient admitted for chest pain at rest. ? Discharge Providers Provider Date of admission: 05/31/22 23:47 Discharge Date: 06/01/22 Primary care physician: Shadia Palomino PA-C Consults: 05/31/22 21:23 Consult to Dietitian, Adult Routine Comment: Reason For Exam: 43.9 05/31/22 21:24 Consult to Occupational Therapy Evaluate & Treat Comment: Physician Instructions: Evaluate and treat Consult to Physical Therapy Evaluate & Treat Comment: Physician Instructions: Evaluate and Treat Discharge provider: Mala Wu MD Summary Hospital Course Discharge Diagnosis: 1. Chest pain, typical, resolved, with low risk exercise treadmill test 2. GERD, chronic 3. Hypokalemia, improved 4. Class 3 obesity with BMI of 45.8 5. Dyslipidemia Hospital Course: Patient presented with a 2 week history of severe fatigue, rapid heart rate, nausea, diaphoresis, and heaviness over the left side of her chest radiating up into her left jaw and left breast. She was admitted for further evaluation for [place]. She underwent serial troponin testing which was negative x3. She was on telemetry without any arrhythmia. She underwent an exercise treadmill stress test the results of which showed a low risk study. She had no residual symptoms on the date of discharge. She was alert, oriented x3, ambulatory within the room, and without complaint. She is encouraged to follow-up with her primary care provider, MARIO palomino at the [facility] clinic to review results of her echocardiogram and to work on improving her lipid panels. She is discharged in stable condition Status at Discharge Cognitive/behavioral status at discharge: oriented Functional status at discharge: independent ambulation Overall status at discharge: patient is back to baseline Exam Vital Signs (past 8 hours): - 06/01/22 12:00 06/01/22 14:00 Temperature 97.1 F L 97.3 F L Pulse Rate 101 H 93 H Respiratory Rate 17 17 Blood Pressure 108/73 98/62 Pulse Oximetry 93 96 Oxygen Flow Rate 0 0 Oxygen Delivery Method Room Air Oxygen Flow Rate 0 Narrative Exam Narrative: GEN: Pleasant middle-aged female, Alert and oriented x 3, NAD HEENT:NC, Face symmetric CHEST: Respiratory excursions symmetric, CTAB CV: RRR, no M/R/G ABD: Soft, obese, NT/ND, BT present in all 4 quadrants, body habitus limits exam EXTR: warm, well perfused, no C/C/E SKIN: warm and dry, no rash NEURO: Alert and oriented x 3, nonfocal Objective Labs 06/01/22 06:35 06/01/22 06:35 Labs: Laboratory Results - last 24 hr 05/31/22 05/31/22 05/31/22 18:26 18:26 18:26 WBC 12.2 H RBC 4.76 Hgb 14.2 Hct 41.0 MCV 86.2 MCH 29.8 MCHC 34.5 RDW 13.5 Plt Count 406 H Neut % (Auto) 61.7 Lymph % (Auto) 27.0 [place] % (Auto) 8.4 Eos % (Auto) 2.1 Baso % (Auto) 0.8 Neut # (Auto) 7500 H Lymph # (Auto) 3300 [place] # (Auto) 1000 H Eos # (Auto) 300 Baso # (Auto) 100 PT 10.7 INR 0.9 APTT 31 D-Dimer Sodium 138 Potassium 3.3 L Chloride 98 Carbon Dioxide 30 BUN 12 Creatinine 0.63 Estimated GFR > 60 BUN/Creatinine Ratio 19.0 Glucose 90 Calcium 9.0 Magnesium 2.0 Total Bilirubin 0.5 AST 41 H ALT 47 H Alkaline Phosphatase 75 Total Creatine Kinase 96 CK-MB (CK-2) TNP CK-MB (CK-2) Rel Index TNP Troponin I < 0.012 NT-Pro-B Natriuret Pep Total Protein 8.2 Albumin 4.3 Globulin 3.9 Albumin/Globulin Ratio 1.1 Triglycerides Cholesterol LDL Cholesterol, Calc HDL Cholesterol Lipase 79 SARS-CoV-2 (PCR) 05/31/22 05/31/22 05/31/22 18:26 18:26 18:35 WBC RBC Hgb Hct MCV MCH MCHC RDW Plt Count Neut % (Auto) Lymph % (Auto) [place] % (Auto) Eos % (Auto) Baso % (Auto) Neut # (Auto) Lymph # (Auto) [place] # (Auto) Eos # (Auto) Baso # (Auto) PT INR APTT D-Dimer 333 Sodium Potassium Chloride Carbon Dioxide BUN Creatinine Estimated GFR BUN/Creatinine Ratio Glucose Calcium Magnesium Total Bilirubin AST ALT Alkaline Phosphatase Total Creatine Kinase CK-MB (CK-2) CK-MB (CK-2) Rel Index Troponin I NT-Pro-B Natriuret Pep < 11 Total Protein Albumin Globulin Albumin/Globulin Ratio Triglycerides Cholesterol LDL Cholesterol, Calc HDL Cholesterol Lipase SARS-CoV-2 (PCR) Negative 05/31/22 06/01/22 06/01/22 20:30 06:35 06:35 WBC 7.6 RBC 4.53 Hgb 13.6 Hct 39.5 MCV 87.3 MCH 30.0 MCHC 34.3 RDW 13.6 Plt Count 368 Neut % (Auto) 51.1 Lymph % (Auto) 36.9 [place] % (Auto) 8.6 Eos % (Auto) 3.1 Baso % (Auto) 0.3 Neut # (Auto) 3900 Lymph # (Auto) 2800 [place] # (Auto) 700 Eos # (Auto) 200 Baso # (Auto) 0 PT INR APTT D-Dimer Sodium 137 Potassium 3.7 Chloride 100 Carbon Dioxide 30 BUN 13 Creatinine 0.63 Estimated GFR > 60 BUN/Creatinine Ratio 20.6 Glucose 95 Calcium 8.5 Magnesium Total Bilirubin AST ALT Alkaline Phosphatase Total Creatine Kinase CK-MB (CK-2) CK-MB (CK-2) Rel Index Troponin I < 0.012 < 0.012 NT-Pro-B Natriuret Pep Total Protein Albumin Globulin Albumin/Globulin Ratio Triglycerides 153 H Cholesterol 189 LDL Cholesterol, Calc 116 H HDL Cholesterol 42 Lipase SARS-CoV-2 (PCR) [facility] Medical History (Updated 06/01/22 @ 03:50 by RAMIREZ Hannah-) Gastroesophageal reflux disease Surgical History History of hysterectomy No pertinent past surgical history Family History (Updated 06/01/22 @ 03:47 by JAKOB Hannah) Father No problems noted. Mother No problems noted. Social History marital status: household members: spouse lives independently: Yes Smoking Status: Never smoker Discharge Plan Discharge Plan Patient Disposition: Home Provider Discharge Comment: Your exercise stress test was felt to be a low risk study, meaning there was no evidence of cardiac disease. Your echocardiogram is still pending at this time. Please follow-up w/MARIO Palomino in the next week to get results. You have slightly elevated triglycerides and an elevated LDL cholesterol (bad cholesterol). Please work with MARIO Palomino on getting your cholesterol down. Return to the ED for any recurrent chest pain, fevers, shortness of breath or inability to keep down food/fluids Discharge orders & Medications Follow up/Referrals: Shadia Palomino PA-C [Primary Care Provider] - Diet/Activity/Treatments Diet: Diet as Tolerated Activity: As tolerated Oxygen: N/A Visit Report/Discharge Packet Instructions: High Triglycerides, DI for Atypical Chest Pain Stand Alone Forms: Patient Portal/API, Stroke Signs & Symptoms Discharge Data Primary Care Provider: Shadia Palomino Attending Provider: Cherrie Cruz Admit Date/Time: 05/31/22 23:47
--- NOTE | 2022-06-01 18:58 | PC.NURSE ---
Pt is A&OX3, VSS, afebrile on RA. She is independent and ambulatory in the room. NSR, on telemetry. After stress test today she is medically cleared for discharge home with , pending echo. Patient is unable to get echo completed in hospital and it is ordered for her outpatient. Requisition faxed to [facility] imaging. She is escorted with all belongings to private vehicle this evening for discharged home with . She verbalizes understanding of instructions to follow up with PCP , echo out patient and to return to ED with recurring symptoms.
--- NOTE | 2022-06-01 19:38 | DI.NM.S_ITS ---
DATE OF SERVICE: 06/01/2022 PROCEDURE: Exercise treadmill stress test without imaging. ORDERING PROVIDER: RAMIREZ YATES. INDICATIONS: The patient is a 52-year-old female admitted with dyspnea and atypical chest discomfort. FINDINGS: 1. The patient was able to exercise for 6 minutes 17 seconds suggesting mild to moderately reduced exercise capacity with an JYOTI of +15%, achieving 6.4 METs. 2. She had a normal heart rate and blood pressure response to exercise, achieving a maximum heart rate of 148 bpm (89% of her predicted maximum). 3. She had no chest discomfort or anginal symptoms. 4. Her resting ECG shows sinus rhythm at [address]-segment abnormalities that become slightly accentuated with stress but without significant change. There were no arrhythmias. IMPRESSION: 1. Probable normal exercise treadmill study for ischemia with minimal ST segment changes with stress but is low risk.. 2. Mild to moderately reduced exercise capacity without angina or arrhythmias. Hilaria Helm - /aaron/nm doc#: [id number]/job#: [id number] dd: 06/01/2022 12:49:00 dt: 06/01/2022 18:49:00 DICTATING MD/COPIES TO: Tommy Chavez MD; RAMIREZ YATES COPIES MNE: [place];
== END 2022-06-01 18:30 | disposition home or self-care (01) ==
LOC: ED 18:09 → AC 06-01 02:11
PROVIDERS: Admitting Provider Nurse Practitioner Family; Emergency Provider Emergency Medicine; PCP Physician Assistant Medical; Referring Provider Emergency Medicine; Visit Provider Nurse Practitioner Family
DX: R07.9 Chest pain, unspecified (principal); K21.9 Gastro-esophageal reflux disease without esophagitis; Z68.42 Body mass index [BMI] 45.0-49.9, adult; E78.5 Hyperlipidemia, unspecified; E66.01 Morbid (severe) obesity due to excess calories; Z20.822 Contact with and (suspected) exposure to COVID-19
CPT/HCPCS: 36415; 71045; 80048; 80053; 80061; 82550; 83690; 83735; 83880; 84484; 85025; 85379; 85610; 85730; 87086; 87635; 93005; 93017; 96372; 99284; C9803; G0378; J1650